=== PATIENT | male | born 1975 | race Caucasian/White ===

== ENCOUNTER 2019-05-08 16:21 | Emergency (ER) | payer OTHER ==
[~2019-05-08] VITALS: Ht 177.8 cm; Wt 104.5 kg
[2019-05-08] MEDS ORDERED: AMOXICILLIN875 MG PO (17:00)
[2019-05-08] MEDS ORDERED: TRAZODONE HCL50 MG PO (17:00)
== END 2019-05-08 19:33 | disposition left against medical advice (07) ==
LOC: ED 16:21
DX: G47.00 Insomnia, unspecified (principal); F29 Unspecified psychosis not due to a substance or known physiological condition
CPT/HCPCS: 70450; 80053; 80176; 81001; 84443; 85025; 99285-25; G0480

== ENCOUNTER 2019-05-08 20:09 | Emergency (ER) | payer OTHER ==
[~2019-05-08] VITALS: Ht 177.8 cm; Wt 104.5 kg
[~2019-05-08 20:09] MED LIST: AMOXICILLIN875 MG PO; TRAZODONE HCL50 MG PO
--- OUTSIDE RECORDS SUMMARY | 2019-05-08 20:12 | XMS ---
PreManage Notification: TOMAS LAU [employer] Events No recent Security Events currently on file CRITERIA MET - [facility] - 2 Visits in 30 Days CARE PROVIDERS There are no care providers on record at this time. Anastacia has no Care Guidelines for this patient. Cari V[facility] (12 MO.) [facility] T[facility] NOTE: Visits indicate total known visits. ED/C VISIT TRACKING (12 MO.) [facility]08[facility]2019 20[facility] COMPLAINT: - MED CLEARANCE 05/08/2019 16:21 [facility] OR TYPE: Emergency COMPLAINT: - MED CLEARANCE INPATIENT VISIT TRACKING (12 MO.) No inpatient visits to display in this time frame [email or web address]
[2019-05-10] MEDS ORDERED: ATIVAN1 MG PO (09:25)
[2019-05-10] MEDS ORDERED: RISPERDAL0.5 MG PO (09:25)
== END 2019-05-10 09:37 | disposition home or self-care (01) ==
LOC: ED 20:09
DX: F23 Brief psychotic disorder (principal); Z79.899 Other long term (current) drug therapy
CPT/HCPCS: 80053; 80176; 81001; 84443; 85025; 96374; 96375; 96376; 99284-25; 99285-25; G0480; J1200; J1630; J2060; J2405

== ENCOUNTER 2024-08-08 11:21 | Emergency (ER) | payer BC ==
[~2024-08-08] VITALS: Ht 177.8 cm; Wt 110.0 kg
[~2024-08-08 11:21] MED LIST changes: +ATIVAN1 MG PO; +RISPERDAL0.5 MG PO
[2024-08-08] MEDS ORDERED: ZOLPIDEM TARTRA10 MG PO (11:28)
[2024-08-08] MEDS ORDERED: LOSARTAN-HCTZ1 EACH PO (11:29)
[2024-08-08] MEDS ORDERED: PAROXETINE HCL20 MG PO (11:29)
[2024-08-08] MEDS ORDERED: ONDANSETRON 4 MG TAB ODT SL ONE (12:00)
[2024-08-08 12:06] LABS: BASOPHILS 0.2 % (0.2-1.2); EOSINOPHILS 0.2 % (0.8-7.0); HEMATOCRIT 46.8 % (40.1-51.0); HEMOGLOBIN 16.6 g/dL (13.7-17.5); LYMPHOCYTES 20.7 % (21.8-53.1); MCH 29.9 PG (25.7-32.2); MCHC 35.5 g/dL (32.3-36.5); MCV 84.2 fL (79.0-92.2); MONOCYTES 9.8 % (5.3-12.2); NEUTROPHILS 68.9 % (34.0-67.9); PLATELET COUNT 210 K/uL (163-337); RBC 5.56 M/uL (4.63-6.08)
[2024-08-08 12:34] LABS: ACETAMINOPHEN 0 ug/mL (10-30); ALBUMIN 4.1 g/dL (3.4-5.0); ALBUMIN/GLOBULIN RATIO 1.24 (1.1-2.4); ALCOHOL, MEDICAL 4 ng/dL (<3); ALKALINE PHOSPHATASE 101 U/L (46-116); ALT (SGPT) 26 U/L (14-59); ANION GAP 12.1 (7-21); AST (SGOT) 12 U/L (15-37); BILIRUBIN, TOTAL 2.9 mg/dL (0.2-1.0); BUN/CREATININE RATIO 16.39 (6.0-28.6); CALCIUM 9.3 mg/dL (8.5-10.1); CARBON DIOXIDE 27 mmol/L (21-32); CHLORIDE 101 mmol/L (98-107); CREATININE, SERUM 1.22 mg/dL (0.70-1.30); GLOMERULAR FILTRATION RATE,EST 74 mL/min (>60); POTASSIUM 3.1 mmol/L (3.5-5.1); PROTEIN, TOTAL 7.4 g/dL (6.4-8.2); TSH, 3RD GENERATION 0.796 uIU/mL (0.358-3.740); UREA NITROGEN 20 mg/dL (7-18)
[2024-08-08 12:38] LABS: SALICYLATE <0.2 mg/dL (2.8-20.0)
[2024-08-08 13:17] LABS: BILIRUBIN, URINE NEGATIVE (negative); BLOOD/HGB, URINE NEGATIVE (Negative); KETONE, URINE NEGATIVE (Negative); LEUK ESTERASE, URINE NEGATIVE (negative); NITRITE, URINE NEGATIVE (negative)
[2024-08-08 13:38] LABS: AMPHETAMINES, URINE NEGATIVE (NEGATIVE); BENZODIAZEPINE, URINE NEGATIVE (NEGATIVE); BUPRENORPHINE, URINE NEGATIVE (NEGATIVE); CANNABINOID, URINE NEGATIVE (NEGATIVE); COCAINE, URINE NEGATIVE (NEGATIVE); ECSTASY, URINE NEGATIVE (NEGATIVE); FENTANYL, URINE NEGATIVE (NEGATIVE); METHADONE, URINE NEGATIVE (NEGATIVE); OPIATES, URINE NEGATIVE (NEGATIVE); OXYCODONE, URINE NEGATIVE (NEGATIVE); PHENCYCLIDINE, URINE NEGATIVE (NEGATIVE)
[2024-08-08] MEDS ORDERED: OLANZapine 10 MG TAB PO ONE (14:00)
[2024-08-08] MEDS ORDERED: diazePAM 5 MG TAB PO ONE (14:00)
[2024-08-08] MEDS ORDERED: TRAZODONE HCL 100 MG TAB PO PRN (20:00)
[2024-08-09] MEDS ORDERED: OLANZapine 10 MG TABDIS PO ONE (10:00)
[2024-08-10 06:11] VITALS: BP 124/54
== END 2024-08-10 06:11 | disposition left against medical advice (07) ==
LOC: ED 11:21
PROVIDERS: Emergency Medicine
DX: R41.89 Other symptoms and signs involving cognitive functions and awareness (principal); Z79.899 Other long term (current) drug therapy
CPT/HCPCS: 36415; 80053; 80307; 81003; 84443; 85025; 99284; A9270; G0480